=== PATIENT | male | born 1950 | race Caucasian/White ===

== ENCOUNTER 2017-12-30 07:41 | Emergency (ER) | payer OTHER ==
--- NOTE | 2017-12-30 08:15 | EDPHY ---
H & P Stated Complaint: cough for 1 week, fatigue. Time Seen by Provider: 12/30/17 07:56 HPI/ROS: CHIEF COMPLAINT: Cough, fatigue HISTORY OF PRESENT ILLNESS: 67-year-old male with asthma presents with cough and fatigue. One-week history of cough and wheezing, attributed to increased smoke in the air. He has been using his home nebulizer several times a day with some relief. Associated with fatigue, body aches and generalized weakness. Denies shortness of breath, chest pain, fever or sore throat/runny nose. REVIEW OF SYSTEMS: complete 10 point ROS negative except at noted in the HPI - Personal History Current Tetanus/Diphtheria Vaccine: Unsure Current Tetanus Diphtheria and Acellular Pertussis (TDAP): Unsure - Medical/Surgical History Hx Asthma: Yes Hx Chronic Respiratory Disease: No Hx Diabetes: No Hx Cardiac Disease: No Hx Renal Disease: No Hx Cirrhosis: No Hx Alcoholism: No Hx HIV/AIDS: No Hx Splenectomy or Spleen Trauma: No Other PMH: Asthma, Allergies ,adhd, CVA, valve surgery - Social History Smoking Status: Never smoked - Physical Exam Exam: General Appearance: Alert, pleasant Eyes: Pupils equal and round, no conjunctival pallor ENT, Mouth: Mucous membranes moist Neck: Normal inspection Respiratory: Normal respiratory rate, faint wheezes at the bases Cardiovascular: Regular rate and rhythm Gastrointestinal: Abdomen is soft and nontender Neurological: A&O, nonfocal, normal gait Skin: Warm and dry, no rash Extremities: Nontender, no pedal edema Psychiatric: Flat affect Constitutional: Initial Vital Signs Temperature (C) 36.7 C 12/30/17 07:42 Heart Rate 78 12/30/17 07:42 Respiratory Rate 16 12/30/17 07:42 Blood Pressure 134/86 H 12/30/17 07:42 O2 Sat (%) 95 12/30/17 07:42 O2 Delivery Mode Room Air Allergies/Adverse Reactions: No Known Allergies Allergy (Unverified 12/30/17 07:54) Home Medications: Medication Instructions Recorded predniSONE 1 tab PO DAILY #15 tab 12/30/17 Medical Decision Making - Diagnostics Imaging Results: Imaging Impressions Chest X-Ray 12/30/17 07:55 Impression: 1. Clear lungs. No acute process. 2. Stigmata of previous open-heart surgery. ED Course/Re-evaluation: This pt presents with an asthma exacerbation. Oxygen saturation is normal and he has minimal bronchospasm on exam. Chest x-ray reveals no evidence of pneumonia. I do not suspect alternative etiology for his symptoms. Prednisone 60 mg orally given and a prescription for prednisone dispensed. Differential Diagnosis: Differential diagnosis includes though it is not limited to pneumonia, pneumothorax, pulmonary embolism, aortic dissection, pericarditis, acute coronary syndrome. - Data Points Medications Given: Discontinued Medications Prednisone (Prednisone) 60 mg PO EDNOW ONE Stop: 12/30/17 08:18 Last Admin: 12/30/17 08:34 Dose: 60 mg Departure - Departure Disposition: Home, Routine, Self-Care Clinical Impression: Asthma exacerbation Qualifiers: Asthma severity: moderate Asthma persistence: unspecified Qualified Code(s): J45.901 - Unspecified asthma with (acute) exacerbation Condition: Good Instructions: Asthma (ED) Additional Instructions: Drink plenty of fluids. Use your home nebulizer 3-4 times daily as needed for wheezing. Take prednisone as prescribed. Follow-up with your physician in 2-3 days. Return for worsening symptoms or any concerns. Referrals: JESUS RILEY [Other] - As per Instructions Prescriptions: predniSONE 1 tab PO DAILY #15 tab
[2017-12-30] MEDS ORDERED: predniSONE 20 MG TAB PO ONE (08:17)
[2017-12-30 08:37] VITALS: BP 138/70
== END 2017-12-30 08:36 | disposition home or self-care (01) ==
DX: J45.901 Unspecified asthma with (acute) exacerbation (principal); Z86.73 Personal history of transient ischemic attack (TIA), and cerebral infarction without residual deficits
CPT/HCPCS: 71046; 99283; J7512

== ENCOUNTER 2018-02-18 20:52 | Emergency (ER) | payer OTHER ==
--- NOTE | 2018-02-18 22:32 | EDPHY ---
General - History Smoking Status: Never smoked Time Seen by Provider: 02/18/18 22:19 Narrative: CHIEF COMPLAINT: Shortness of breath, concern for blood clot HISTORY OF PRESENT ILLNESS: Patient presents with complaints of Shortness of breath with fear of having a blood clot. The patient is postop day 5 from septoplasty performed and [facility]. He says that over the past few days, he has increasing shortness of breath and some palpitations that time. No chest pain of any kind at any point. No cough. No fever. He says that he has felt ill and sometimes chilled. He has no fever. He has no rash. No headache, neck pain or stiffness. He feels that the shortness of breath is different than the physical obstruction he has a breathing to his nose postprocedure. He has no redness, warmth, swelling or pain of the lower extremities. His symptoms are unpredictable in the focal for him to quantify. No other associated complaints or modifying factors REVIEW OF SYSTEMS: 10 systems were reviewed and negative with the exception of the elements mentioned in the history of present illness. SPECIALISTS: Dr. Tran (ENT, [facility]) PAST MEDICAL HISTORY: Asthma, attention deficit hyperactivity disorder, CVA, aortic valve replacement remotely PAST SURGICAL HISTORY: Aortic valve replacement 26 years ago. Recent septoplasty, postop day 5 SOCIAL HISTORY: Never smoker. Lives independently. Does not work. FAMILY HISTORY: Noncontributory EXAMINATION: General Appearance: Alert, no distress. Well appearing. Conversing in full sentences. Head: normocephalic, atraumatic Eyes: Pupils equal and round, no conjunctival pallor or injection ENT, Mouth: Mucous membranes moist. There are nasal stents in place bilaterally with no evidence of active bleeding. The posterior pharynx is dry and patent. No trismus. Neck: Normal inspection, supple, non-tender Respiratory: Lungs are clear to auscultation. No wheezing, rhonchi or crackles Cardiovascular: Regular rate and rhythm. Gastrointestinal: Abdomen is soft and nontender Back: non-tender, no bony abnormalities Neurological: A&O, nonfocal, normal gait Skin: Warm and dry, no rash Extremities: Nontender, no pedal edema. No evidence of DVT. Psychiatric: Mood and affect normal DIFFERENTIAL DIAGNOSES: Including but not limited to weakness, dehydration, anemia, PE, pneumonia, atelectasis MDM: 10:20 p.m. Feelings of shortness of breath with occasional palpitations with fear of PE. Patient does report shortness of breath but has no complaints of chest pain at any point the past 5 days. His vital signs are within normal limits. He feels as though he has been tachycardic at times at home, but does not demonstrate this here. Patient is not able to be ruled out by perc criteria, thus I have ordered CT scan of the chest to rule out PE. Low clinical probability for this but given his age and risk factors, D-dimer is not applicable. I have ordered laboratory studies. 11:10 p.m. Laboratory studies reveal normal creatinine, mild hemoconcentration but no signs of infection. CT scan has been performed but not yet interpreted by Radiology. He is ambulatory in no acute distress. I have ordered 500 mL of IV fluid for his hemoconcentration. 11:20 p.m. Notified by radiologist Dr. Waldrop. CT scan of the chest reveals no acute findings. There are chronic changes as noted. Some granulomas at noted. 11:25 p.m. Patient re-evaluated. We have discussed the the negative CT scan findings. He does not have any evidence of PE. There is no evidence of pneumonia. There are some granulomatous changes. I re-evaluated the patient and notified him of this. He is reassured. He has received 500 mL of IV fluid as he does have hemoconcentration. I do feel that he will be stable for discharge home with no signs of infection or active postoperative bleeding. We discussed follow up with his surgeon tomorrow the next day for wound re-evaluation. He has an appointment on . We discussed ED precautions for any chest pain, further shortness of breath, bleeding in the posterior pharynx, lightheadedness , dizziness or syncope. He is comfortable this plan. He will be discharged home stable condition. SUPERVISION: Patient was independently examined, but I discussed the case with my secondary supervising physician Dr. Marshall CONSULTATION: None (Sheldon Merlos) Medical Decision Making: I did not see or evaluate this patient while the patient was in the emergency room. However agree with Gaurang WADE Work up and plan. (Anam Marshall) - Diagnostics Imaging Results: Imaging Impressions Chest/Thorax CTA 02/18/18 22:31 Impression: 1. No definite pulmonary thromboemboli. 2. Atherosclerotic aorta without aneurysm or dissection. 3. Benign calcified granulomata left upper lobe. 4. Prior aortic valvuloplasty. 5. No acute pneumonia, pleural effusion or pneumothorax. Findings and recommendations discussed with Emergency Department physician, Sheldon Merlos PAC at 23:16 hour, 02/18/2018. Final report concurs with initial preliminary interpretation. A test result has been communicated to a licensed care provider and documented in the [employer] Critical Result system on 02/18/2018 23:18, Message ID [id number]. - Objective Vital Signs: Initial Vital Signs Temperature (C) 36.8 C 02/18/18 20:59 Heart Rate 78 02/18/18 20:59 Respiratory Rate 18 02/18/18 20:59 Blood Pressure 157/91 H 02/18/18 20:59 O2 Sat (%) 95 02/18/18 20:59 O2 Delivery Mode Room Air Allergies/Adverse Reactions: No Known Allergies Allergy (Unverified 12/30/17 07:54) Home Medications: Medication Instructions Recorded Afrin Nasal [place] 02/18/18 Eszopiclone 02/18/18 Mupirocin 2% 02/18/18 Oxyodone 02/18/18 Laboratory Results: Laboratory Results 02/18/18 22:44 02/18/18 22:44 02/19/18 02/18/18 02/18/18 00:02 22:51 22:44 WBC RBC Hgb POC Hgb 17.7 gm/dL H gm/dL (13.7-17.5) Hct POC Hct 52 % H % (40-51) MCV MCH MCHC RDW Plt Count MPV Neut % (Auto) Lymph % (Auto) [place] % (Auto) Eos % (Auto) Baso % (Auto) Nucleat RBC Rel Count Absolute Neuts (auto) Absolute Lymphs (auto) Absolute Monos (auto) Absolute Eos (auto) Absolute Basos (auto) Absolute Nucleated RBC Immature Gran % Immature Gran # PT INR APTT POC Sodium 146 mEq/L H mEq/L (135-145) Sodium 143 mEq/L mEq/L (135-145) POC Potassium 3.8 mEq/L mEq/L (3.3-5.0) Potassium 4.1 mEq/L mEq/L (3.3-5.0) POC Chloride 107 mEq/L mEq/L (97-110) Chloride 106 mEq/L mEq/L (97-110) Carbon Dioxide 25 mEq/l mEq/l (22-31) Anion Gap 12 mEq/L mEq/L (8-16) POC BUN 27 mg/dL H mg/dL (7-23) BUN 27 mg/dL H mg/dL (7-23) Creatinine 1.0 mg/dL mg/dL (0.7-1.3) POC Creatinine 1.1 mg/dL mg/dL (0.7-1.3) Estimated GFR > 60 Glucose 103 mg/dL H mg/dL (70-100) POC Glucose 102 mg/dL H mg/dL (70-100) Calcium 9.8 mg/dL mg/dL (8.5-10.4) POC Troponin I 0.01 ng/mL ng/mL (0.00-0.08) NT-Pro-B Natriuret Pep 398 pg/mL H pg/mL (0-125) 02/18/18 02/18/18 22:44 22:44 WBC 8.18 10^3/uL 10^3/uL (3.80-9.50) RBC 5.71 10^6/uL 10^6/uL (4.40-6.38) Hgb 18.0 g/dL H g/dL (13.7-17.5) POC Hgb Hct 51.1 % H % (40.0-51.0) POC Hct MCV 89.5 fL fL (81.5-99.8) MCH 31.5 pg pg (27.9-34.1) MCHC 35.2 g/dL g/dL (32.4-36.7) RDW 13.1 % % (11.5-15.2) Plt Count 190 10^3/uL 10^3/uL (150-400) MPV 10.6 fL fL (8.7-11.7) Neut % (Auto) 70.9 % % (39.3-74.2) Lymph % (Auto) 15.6 % % (15.0-45.0) [place] % (Auto) 10.8 % % (4.5-13.0) Eos % (Auto) 1.2 % % (0.6-7.6) Baso % (Auto) 0.9 % % (0.3-1.7) Nucleat RBC Rel Count 0.0 % % (0.0-0.2) Absolute Neuts (auto) 5.80 10^3/uL 10^3/uL (1.70-6.50) Absolute Lymphs (auto) 1.28 10^3/uL 10^3/uL (1.00-3.00) Absolute Monos (auto) 0.88 10^3/uL H 10^3/uL (0.30-0.80) Absolute Eos (auto) 0.10 10^3/uL 10^3/uL (0.03-0.40) Absolute Basos (auto) 0.07 10^3/uL 10^3/uL (0.02-0.10) Absolute Nucleated RBC 0.00 10^3/uL 10^3/uL (0-0.01) Immature Gran % 0.6 % % (0.0-1.1) Immature Gran # 0.05 10^3/uL 10^3/uL (0.00-0.10) PT 13.6 SEC SEC (12.0-15.0) INR 1.02 (0.83-1.16) APTT 28.4 SEC SEC (23.0-38.0) POC Sodium Sodium POC Potassium Potassium POC Chloride Chloride Carbon Dioxide Anion Gap POC BUN BUN Creatinine POC Creatinine Estimated GFR Glucose POC Glucose Calcium POC Troponin I NT-Pro-B Natriuret Pep Medications Given: Discontinued Medications Sodium Chloride (Ns) 500 mls @ 0 mls/hr IV EDNOW ONE; Wide Open PRN Reason: Protocol Stop: 02/18/18 23:07 Last Admin: 02/18/18 23:12 Dose: 500 mls Point of Care Test Results: Chemistry 02/19/18 02/18/18 00:02 22:51 POC Sodium 146 mEq/L H mEq/L (135-145) POC Potassium 3.8 mEq/L mEq/L (3.3-5.0) POC Chloride 107 mEq/L mEq/L (97-110) POC BUN 27 mg/dL H mg/dL (7-23) POC Creatinine 1.1 mg/dL mg/dL (0.7-1.3) POC Glucose 102 mg/dL H mg/dL (70-100) POC Troponin I 0.01 ng/mL ng/mL (0.00-0.08) ISTAT H&H 02/18/18 22:51 POC Hgb 17.7 gm/dL H gm/dL (13.7-17.5) POC Hct 52 % H % (40-51) Departure - Departure Disposition: Home, Routine, Self-Care Clinical Impression: Dehydration, History of general anesthesia, Shortness of breath Condition: Good Instructions: Dehydration (ED) Additional Instructions: 1. Contact primary care physician tomorrow morning to be followed up outpatient 2. Contact your Ear Nose and Throat surgeon for wound evaluation on Sunday. 3. Return to emergency depart for any chest pain, shortness of breath, wheezing , fever, bleeding in the posterior pharynx or from the nose Referrals: JESUS DIXON [Other] - As per Instructions
[2018-02-18] MEDS ORDERED: IOPAMIDOL (ISOVUE 370) 100 ML BTL IV ONE (22:36)
[2018-02-18 22:54] LABS: PLATELET COUNT 190 10^3/uL (150-400)
[2018-02-18] MEDS ORDERED: NS 500 ML IV ONE (23:06)
[2018-02-18 23:17] LABS: INR 1.02 (0.83-1.16); PROTIME(PATIENT) 13.6 SEC (12.0-15.0)
[2018-02-19 00:29] VITALS: BP 180/90
--- NOTE | 2018-02-19 14:31 | CPEKG ---
Test Reason : OPEN Blood Pressure : / mmHG Vent. Rate : 073 BPM Atrial Rate : 072 BPM P-R Int : 157 ms QRS Dur : 137 ms QT Int : 401 ms P-R-T Axes : 053 053 238 degrees QTc Int : 442 ms Sinus rhythm IVCD, consider atypical RBBB Abnormal T, consider ischemia, lateral leads Confirmed by Memo Foley ([id number]), city editor Jay Spivey ([id number]) on 02/19/2018 2:30:47 PM Referred By: Confirmed By:Memo Foley
== END 2018-02-19 00:29 | disposition home or self-care (01) ==
DX: R06.02 Shortness of breath (principal); E86.0 Dehydration; Z98.890 Other specified postprocedural states
CPT/HCPCS: 71275; 93005; 99285; Q9967; 82435-PO; 82565-PO; 82947-PO; 84132-PO; 84295-PO; 84484-PO; 84520-PO; 85014-PO